=== PATIENT | male | born 1960 | race Caucasian/White ===

== ENCOUNTER 2024-08-31 10:43 | Inpatient (IN) ==
[2024-08-31 11:12] VITALS: BMI 25.3
--- NOTE | 2024-08-31 11:15 | EKG ---
Test Reason : dyspnea Blood Pressure : */* mmHG Vent. Rate : 108 BPM Atrial Rate : 108 BPM P-R Int : 190 ms QRS Dur : 96 ms QT Int : 350 ms P-R-T Axes : 43 -34 -24 degrees QTc Int : 469 ms Sinus tachycardia Left axis deviation Septal infarct , age undetermined Abnormal ECG No previous ECGs available Confirmed by Jacobo Jackson MD ([id number]) on 08/31/2024 12:29:41 PM Referred By: Confirmed By: Jacobo Jackson MD
[2024-08-31 11:17] LABS: MEAN PLATELET VOLUME 8.5 fL (7.4-11.0); RED CELL DISTRIBUTION WIDTH 14.4 % (11.6-16.5)
[2024-08-31 11:24] LABS: INR 1.66 (0.8-1.3)
[2024-08-31 11:42] LABS: CREATININE 1.32 mg/dL (0.70-1.30); eGFR NON BLACK RACES 58 (>60)
--- NOTE | 2024-08-31 12:01 | CT ---
EXAMINATION: BRAIN W/O CON HISTORY: visual hallucinations; COMPARISON: None. TECHNIQUE: Contiguous noncontrast axial CT images of the brain. Images reviewed in the axial imaging plane with reformatted sagittal and coronal images.The above CT scan was done with automated exposure control and the mA and kV was adjusted to obtain quality images according to patient size. FINDINGS: No evidence of acute intracranial hemorrhage, mass effect, or midline shift. Ventricles normal size and shape. Calvarium appears intact. IMPRESSION: No acute intracranial process seen. Recommend further evaluation with an MRI of the brain if this is of continued clinical concern. THIS IS AN ELECTRONICALLY VERIFIED FINAL REPORT 08/31/2024 11:58 AM - Electronically signed by Tita Restrepo MD
--- NOTE | 2024-08-31 12:05 | DR.SOBA ---
HPI Time Seen Time Seen by Provider: 08/31/24 10:58 Primary Care Physician Primary Care Physician: NFD Complaints Chief Complaint Doctors Comments: 64 yo M, no known medical hx, c/o increasing dyspnea over the past 2 wk. Admits to gen abd discomfort and nausea. Denies other complaints. Chief Complaint:: Pt c/o 2-3 weeks of progressively worsening exertional shortness of breath with productive cough with clear sputum.EMS reports that pt's O2 sat on room air was 94% upon their arrival on scene. Pt denies any chest pain, fever, or chills. Pt states that yesterday afternoon he was riding his tractor and had a sudeen onset of numbness of the tip of his tongue and the left side of his bottom lip. Pt is unsure of exactly how long this lasted but states, "It wasn't long at all." Pt states that this has all resolved today. Denies any weakness or dizziness. COVID-19 Coronavirus risk:travel/contact w/high risk person: No Has patient experienced Coronavirus symptoms: No Source History Provided: Patient Mode of Arrival Mode of Arrival: EMS Timing Onset of Chief Complaint: 08/31/24 PMH PMH Past Medical History: No Past Surgical History: Yes Surgical History: Ortho Surgery Past Surgical History Comment: right leg surgery Family History History of Family Medical Conditions: Yes Family Medical History Comment: CVA Social History Does patient currently use any type of tobacco product: Yes Have you used tobacco products in the last 12 months: Yes Type of Tobacco Use: Cigarettes Does any household member use tobacco: No Alcohol Use: DAILY Do you use any recreational Drugs:: No Lives With: Alone Lives Where: Home Travel Risk Coronavirus risk:travel/contact w/high risk person: No Has patient experienced Coronavirus symptoms: No Infectious screening In the last 2 months have you had wt loss of >10#?: NO Have you had fever, night sweats or hemotysis?: No Have you traveled outside the country in the last 6 months?: No Isolation: Standard ROS Review of Systems Respiratoy: Short of Breath Gastrointestinal/Abdominal: Abdominal Pain and Nausea All Other Systems: Reviewed and Negative PE Vital Signs Vitals: Vital Signs Temperature 97.9 F Pulse Rate 100 Pulse Rate 99 Pulse Rate 100 Pulse Rate 98 Pulse Rate 99 Pulse Rate 99 Pulse Rate 100 Pulse Rate 101 Pulse Rate 99 Pulse Rate 100 Pulse Rate 105 Pulse Rate 101 Pulse Rate 105 Pulse Rate 106 Pulse Rate 101 Pulse Rate 105 Pulse Rate 111 Pulse Rate 107 Pulse Rate 111 Respiratory Rate 34 Respiratory Rate 27 Respiratory Rate 28 Respiratory Rate 29 Respiratory Rate 27 Respiratory Rate 34 Respiratory Rate 23 Respiratory Rate 25 Respiratory Rate 23 Respiratory Rate 25 Respiratory Rate 17 Respiratory Rate 26 Respiratory Rate 23 Respiratory Rate 23 Respiratory Rate 28 Respiratory Rate 25 Respiratory Rate 20 Respiratory Rate 25 Respiratory Rate 40 Blood Pressure 121/75 Blood Pressure 114/61 Blood Pressure 139/63 Blood Pressure 115/66 Blood Pressure 144/70 Blood Pressure 126/65 O2 Sat by Pulse Oximetry 95 O2 Sat by Pulse Oximetry 97 O2 Sat by Pulse Oximetry 98 O2 Sat by Pulse Oximetry 98 O2 Sat by Pulse Oximetry 97 O2 Sat by Pulse Oximetry 96 O2 Sat by Pulse Oximetry 97 O2 Sat by Pulse Oximetry 94 O2 Sat by Pulse Oximetry 99 O2 Sat by Pulse Oximetry 99 O2 Sat by Pulse Oximetry 99 O2 Sat by Pulse Oximetry 99 O2 Sat by Pulse Oximetry 99 O2 Sat by Pulse Oximetry 100 O2 Sat by Pulse Oximetry 98 O2 Sat by Pulse Oximetry 97 O2 Sat by Pulse Oximetry 98 O2 Sat by Pulse Oximetry 97 O2 Sat by Pulse Oximetry 97 General Limitations: No Limitations General Appearance: Alert and In No Apparent Distress Head Head Exam: Normal Inspection Eyes Eye exam: Normal Appearance ENT ENT Exam: Normal Exam Neck Neck Exam: Normal Inspection Chest Chest Inspection: Normal Inspection Respiratory Respiratory Exam: Normal Lung Sounds Bilat Respiratory Exam: Bilateral: Clear to Auscultation Cardiovascular Cardiovascular Exam: Regular Rate and Normal Rhythm Abdominal Exam Abdominal Exam: Normal Inspection, Normal Bowel Sounds and Soft Extremities Extremities Exam: Normal Inspection Back Back Exam: Normal Inspection Neurologic Neurological Exam: Alert and Oriented X3 Psychiatric Psychiatric Exam: Normal Affect and Normal Mood Skin Skin Exam: Warm, Dry, Intact and Normal Color ROR Labs Reviewed Laboratory Results Reviewed?: Yes 08/31/24 11:08 08/31/24 11:08 Laboratory: WBC 16.3 X10^3/uL (3.6-10.0) H 08/31/24 11:08 RBC 4.35 X10^6/uL (4.7-6.0) L 08/31/24 11:08 Hgb 13.5 g/dL (13.5-18.0) 08/31/24 11:08 Hct 39.7 % (42.0-54.0) L 08/31/24 11:08 MCV 91.2 fL (80.0-100.0) 08/31/24 11:08 MCH 31.1 pg (27.0-34.0) 08/31/24 11:08 MCHC 34.1 g/dL (33.0-35.0) 08/31/24 11:08 RDW 14.4 % (11.6-16.5) 08/31/24 11:08 Plt Count 223 X10^3/uL (150.0-450.0) 08/31/24 11:08 MPV 8.5 fL (7.4-11.0) 08/31/24 11:08 Neut % (Auto) 85.4 % (42.0-75.0) H 08/31/24 11:08 Lymph % (Auto) 7.7 % (21.0-51.0) L 08/31/24 11:08 [place] % (Auto) 6.7 % (0.0-13.0) 08/31/24 11:08 Eos % (Auto) 0.0 % (0.9-2.9) L 08/31/24 11:08 Baso % (Auto) 0.2 % (0.2-1.0) 08/31/24 11:08 Neut # (Auto) 13.9 x10^3/uL (2.2-4.8) H 08/31/24 11:08 Lymph # (Auto) 1.3 X10^3/uL (1.3-2.9) 08/31/24 11:08 [place] # (Auto) 1.1 x10^3/uL (0.3-0.8) H 08/31/24 11:08 Eos # (Auto) 0.0 x10^3/uL (0.0-0.2) 08/31/24 11:08 Baso # (Auto) 0.0 X10^3/uL (0.0-0.1) 08/31/24 11:08 Absolute Nucleated RBC 0.1 /100WBC 08/31/24 11:08 PT 19.7 SECONDS (11.8-14.3) 08/31/24 11:08 INR Target Range - 08/31/24 11:08 INR 1.66 (0.8-1.3) H 08/31/24 11:08 APTT 31.2 SECONDS (22.9-36.5) 08/31/24 11:08 PTT Comment - 08/31/24 11:08 Sodium 121 mmol/L (136-145) L* 08/31/24 11:08 Corrected Sodium TNP 08/31/24 11:08 Potassium 5.3 mmol/L (3.5-5.1) H 08/31/24 11:08 Chloride 86 mmol/L (98-107) L 08/31/24 11:08 Carbon Dioxide 22.0 mmol/L (21-32) 08/31/24 11:08 BUN 26 mg/dL (7-18) H 08/31/24 11:08 Creatinine 1.32 mg/dL (0.70-1.30) H 08/31/24 11:08 Est GFR (MDRD) Af Amer > 60 (>60) 08/31/24 11:08 Est GFR (MDRD) Non-Af 58 (>60) L 08/31/24 11:08 Glucose 88 mg/dL (65-99) 08/31/24 11:08 Calcium 8.7 mg/dL (8.5-10.1) 08/31/24 11:08 Corrected Calcium TNP 08/31/24 11:08 Magnesium 2.1 mg/dL (2.0-2.9) 08/31/24 11:08 Total Bilirubin 1.70 mg/dL (0.2-1.0) H 08/31/24 11:08 AST 1311 Units/L (15-37) H 08/31/24 11:08 ALT 1145 Units/L (12-78) H 08/31/24 11:08 Alkaline Phosphatase 161 Units/L (46-116) H 08/31/24 11:08 Ammonia 14 umol/L (11-32) 08/31/24 12:01 Creatine Kinase 1395 Units/L (39-308) H 08/31/24 13:06 Troponin I High Sens 202.6 ng/L (4.0-60.0) H* 08/31/24 13:06 B-Natriuretic Peptide 1720 pg/mL (0-79) H 08/31/24 11:08 Total Protein 7.1 g/dL (6.4-8.2) 08/31/24 11:08 Albumin 3.7 g/dL (3.4-5.0) 08/31/24 11:08 Globulin 3.4 g/dL (2.5-4.5) 08/31/24 11:08 Albumin/Globulin Ratio 1.1 Ratio (1.1-2.1) 08/31/24 11:08 Specimen Type Clean catch urine 08/31/24 11:58 Urine Color Dark yellow (YELLOW) 08/31/24 11:58 Urine Appearance Clear (CLEAR) 08/31/24 11:58 Urine pH 6.0 (5.0 - 8.0) 08/31/24 11:58 Ur Specific [place] 1.025 (1.000-1.030) 08/31/24 11:58 Urine Protein 3+ (NEGATIVE) 08/31/24 11:58 Urine Glucose (UA) Negative (NEGATIVE) 08/31/24 11:58 Urine Ketones 2+ (NEGATIVE) 08/31/24 11:58 Urine Blood 1+ (NEGATIVE) 08/31/24 11:58 Urine Nitrite Negative (NEGATIVE) 08/31/24 11:58 Urine Bilirubin Negative (NEGATIVE) 08/31/24 11:58 Urine Urobilinogen 2+ (NORMAL) 08/31/24 11:58 Ur Leukocyte Esterase 1+ (NEGATIVE) 08/31/24 11:58 Urine RBC 0-2 /HPF (0-3) 08/31/24 11:58 Urine WBC 0-2 /HPF (0-5) 08/31/24 11:58 Ur Squamous Epith Cells Rare /HPF (NEGATIVE) 08/31/24 11:58 Amorphous Sediment Trace /HPF (NEGATIVE) 08/31/24 11:58 Urine Bacteria Negative /HPF (NEGATIVE) 08/31/24 11:58 Urine Mucus Few /HPF (NEGATIVE) 08/31/24 11:58 Ur Culture Indicated? No/not indicated 08/31/24 11:58 Opioid Opioid Risk Tool Age ( box if 16-45): No History of Preadolescent Sexual Abuse: No Total: 0 Total Score Risk Category: Low Risk Copyright: Juarez HUGHES predicting aberrant behaviors Discharge Plan Diagnosis Discharge Problem: Acalculous cholecystitis, Hyponatremia, Transaminitis, Elevated troponin, Acute dyspnea Discharge Plan Patient Disposition: 09 ADMITTED INPATIENT Condition: Stable Prescriptions: No Action [facility] Concerns: Post Hospitalization: new medications and changes needed to prevent readmission or further decline. Pt educated and given instructions on all concerns. Plan of Treatment: Continue with present treatment and follow up plan. Pt is to keep follow up appointment as instructed and take medications as ordered. Follow ups/Referrals Follow ups/Referrals: NFD,None [Primary Care Provider] - 3 days Instructions Stand Alone Forms: Find Help Web Site, Post Hospital Follow Up Care Print Language: SYRIAN ADDITIONAL NOTES Additional Notes Additional Notes: Spoke with Dr Rosales, agrees to consult on pt. Not a surgical candidate today. Pt accepted by Dr Livingston.
[2024-08-31 12:06] LABS: BLOOD/HEMOGLOBIN,URINE 1+ (NEGATIVE); LEUKOCYTE ESTERASE ,URINE 1+ (NEGATIVE); NITRITES,URINE NEGATIVE (NEGATIVE)
[2024-08-31 12:08] LABS: APPEARANCE,URINE CLEAR (CLEAR)
[2024-08-31 12:15] LABS: SQUAMOUS EPITHELIAL CELL,UR RARE /HPF (NEGATIVE)
[2024-08-31] MEDS: NS 1,000 ML IV 1,000 ML IV ONE (12:19)
--- NOTE | 2024-08-31 12:52 | CT ---
EXAM: CT ABDOMEN AND PELVIS WITHOUT CONTRAST HISTORY: abd pain,elevated liver enzyme; COMPARISON: None. TECHNIQUE: Axial CT images were obtained through the abdomen and pelvis without contrast. Coronal reformatted images were included. All CT scans at this facility use dose modulation, iterative reconstruction, and/or weight based dosing when appropriate to reduce radiation dose to as low as reasonably achievable. FINDINGS: Please note that without the use of intravenous contrast, evaluation of organ parenchyma is limited. LOWER THORAX: Normal ABDOMEN: LIVER: Normal GALLBLADDER: Normal SPLEEN: Normal PANCREAS: Normal KIDNEYS: Normal ADRENAL GLANDS: Adreniform shape of the adrenals is maintained with adrenal thickening. Lower limb left renal adrenal adenoma suspected, measuring 2.2 cm in size. GI TRACT: Colonic diverticulosis without evidence of diverticulitis. LYMPH NODES: No enlarged nodes VESSELS: Moderate atherosclerosis. PERITONEUM / RETROPERITONEUM: No free gas PELVIS: BLADDER: Normal GENITALS: Coarse prostate calcification noted. BONES: Degenerative changes noted within the lumbar spine and pelvis. IMPRESSION: No acute process demonstrated. THIS IS AN ELECTRONICALLY VERIFIED FINAL REPORT 08/31/2024 12:48 PM - Electronically signed by Bao Hoffmann MD
--- NOTE | 2024-08-31 13:47 | US ---
EXAM: Hepatic sonogram HISTORY: Elevated liver function tests TECHNIQUE: Multiple grayscale sonographic images were obtained. COMPARISON: CT abdomen pelvis same day FINDINGS: Liver is normal in size and configuration and without cyst, mass, or biliary ductal dilatation. Portal venous blood flow was hepatopetal. Hepatic artery was patent. Hepatic venous blood flow was hepatofugal. Right kidney was unobstructed. No gallstones are identified within the gallbladder. There is gallbladder wall thickening and some intramural fluid present. Acute cholecystitis is suspected. This could represent acalculous cholecystitis or could be cholecystitis due to a nonvisualized small calculus obstructing the cystic duct. Correlation with biliary nuclear medicine scan would be of further diagnostic value in assessing cystic duct patency. IMPRESSION: No obvious cholelithiasis identified however there is gallbladder wall thickening with several areas of intramural fluid. Finding is suggestive of acute cholecystitis which could be due to a nonvisualized calculus within the cystic duct or could be acalculous cholecystitis. Nuclear medicine biliary scan would be of further diagnostic value in assessing cystic duct patency. THIS IS AN ELECTRONICALLY VERIFIED FINAL REPORT 08/31/2024 1:43 PM - Electronically signed by Hammad Lewis MD
[2024-08-31] MEDS ORDERED: NS 250 ML IV 25 ML IV PRN (14:26)
[2024-08-31] MEDS: ZOSYN VIAL 3.375 GRAMS 3.375 G in NS 100 ML IV 100 ML IV ONE (14:46)
--- NOTE | 2024-08-31 15:03 | RAD ---
EXAM: CHEST, 1 VIEW HISTORY: Shortness of Breath; COMPARISON: No relevant prior studies were available for comparison at the time of interpretation. TECHNIQUE: CHEST, 1 VIEW FINDINGS: Chest: Lines and tubes: None Mediastinum: Cardiomegaly. Pulmonary vessels: Pulmonary vasculature is prominent. Lung majano: No suspicious airspace opacity. Pleura: No effusion. No pneumothorax. Bones and soft tissues: No acute osseous or soft tissue abnormality. IMPRESSION: 1. No acute cardiopulmonary abnormality THIS IS AN ELECTRONICALLY VERIFIED FINAL REPORT 08/31/2024 2:59 PM - Electronically signed by Andre Schmidt MD
[2024-08-31] MEDS ORDERED: TYLENOL 325 MG TAB PO PRN (15:09)
[2024-08-31] MEDS ORDERED: ULTRAM PO PRN (15:09)
[2024-08-31] MEDS ORDERED: MORPHINE SULFATE INJ 2 MG INJ IVP PRN (15:09)
[2024-08-31] MEDS ORDERED: NORCO 5/325 MG TAB PO PRN (15:09)
[2024-08-31] MEDS: NS 1,000 ML IV 1,000 ML IV SCH (16:03)
[2024-08-31] MEDS: CONSULT PHARMACY - POTASSIUM & MAGNESIUM XX SCH (16:03)
[2024-08-31] MEDS ORDERED: NS 1,000 ML IV 1,000 ML ONE (17:03)
[2024-08-31] MEDS: NICOTINE PATCH TD SCH (17:10)
[2024-09-01 05:20] LABS: MEAN PLATELET VOLUME 9.2 fL (7.4-11.0); RED CELL DISTRIBUTION WIDTH 14.5 % (11.6-16.5)
[2024-09-01 05:33] LABS: COR CA(FOR HYPOALB) 8.9 mg/dL (8.5-10.1); CREATININE 1.10 mg/dL (0.70-1.30); eGFR NON BLACK RACES > 60 (>60)
[2024-09-01] MEDS ORDERED: NS 250 ML IV 25 ML IV PRN (08:00)
[2024-09-01] MEDS: ZOSYN VIAL 3.375 GRAMS 3.375 G in NS 100 ML IV 100 ML IV SCH (08:38)
--- NOTE | 2024-09-01 08:46 | RAD ---
EXAMINATION: CHEST, 1 VIEW HISTORY: dyspnea, elevated troponin; . COMPARISON STUDY: Chest x-ray 08/31/2024 TECHNIQUE: Single portable AP view chest FINDINGS: Lungs are expanded. [id number] cardiac silhouette enlargement with mild pulmonary vascular congestion. Prominent interstitial markings scattered throughout both lungs. Bones appear intact. IMPRESSION: Cardiac silhouette enlargement with slight pulmonary vascular congestion. Subtle diffuse interstitial infiltrates in both lungs. Consider CHF. THIS IS AN ELECTRONICALLY VERIFIED FINAL REPORT 09/01/2024 8:43 AM - Electronically signed by Tita Restrepo MD
[2024-09-01 10:31] VITALS: BP 114/60; PULSE 111; RESP 30; O2SAT 94
[2024-09-01 10:43] VITALS: TEMP 98.2
== END 2024-09-01 11:20 | disposition critical access hospital (66) | DRG 948 ==
LOC: ICU 10:43 → ER 10:43 → OBSVTOIN 16:04 → ICU 16:32
PROVIDERS: ADMIT Internal Medicine; ATTEND Internal Medicine